=== PATIENT | female | born 1930 | race African-American/Black ===

== ENCOUNTER 2016-06-03 15:36 | Emergency (ER) | payer MEDICARE, BC ==
[~2016-06-03] VITALS: Ht 167.6 cm; Wt 75.0 kg
[~2016-06-03 15:36] MED LIST: ASPI-1035 PO; ESOM40CA PO; ZOLP5TAB2 PO
[2016-06-03] MEDS ORDERED: DIAZEPAM 5 MG TABLET PO ONE (16:15)
[2016-06-03] MEDS ORDERED: TRAMADOL 50MG TABLET PO ONE (18:15)
[2016-06-03 18:16] VITALS: BP 125/78
== END 2016-06-03 19:48 | disposition home or self-care (01) ==
LOC: ER 19:48
DX: M54.42 Lumbago with sciatica, left side (principal); I10 Essential (primary) hypertension; Z79.82 Long term (current) use of aspirin; Z79.899 Other long term (current) drug therapy; Z88.8 Allergy status to other drugs, medicaments and biological substances; M19.90 Unspecified osteoarthritis, unspecified site; M79.7 Fibromyalgia
CPT/HCPCS: 72131; 99284

== ENCOUNTER 2017-03-06 06:08 | Day surgery (SDC) | payer MEDICARE, BC ==
[~2017-03-06 06:08] MED LIST changes: -ASPI-1035 PO; +ASPI-1159 PO
[2017-03-06] MEDS ORDERED: GENTAMICIN/NS IRRIGATION 500 ML IR ONE (07:47)
[2017-03-06] MEDS ORDERED: LIDOCAINE HCL 1% 20ML VIAL (Pyxis) INJ ONE (07:47)
[2017-03-06] MEDS ORDERED: GENTAMICIN SULF 40MG/ML 2ML VIAL ONE (07:47)
[2017-03-06 07:51] LABS: BASOPHILS % 1.1 % (0.0-2.0); EOSINOPHILS % 2.8 % (0.0-5.0); HEMATOCRIT. 43.7 % (36.0-48.0); HEMOGLOBIN. 14.7 g/dL (12.0-16.0); MEAN CORPUSCULAR HEMOGLOBIN 31.4 pg (28.0-32.0); MEAN CORPUSCULAR VOLUME 93.1 fL (81.0-99.0); MEAN PLATELET VOLUME 9.3 fl (7.4-10.4); NEUTROPHILS % 39.1 % (40.0-76.0); PLATELET 234 x1000/uL (130-400); RED BLOOD CELL COUNT 4.69 mill/uL (4.2-5.4); RED CELL DISTRIBUTION WIDTH 14.5 % (11.6-14.6)
[2017-03-06 07:57] LABS: CHLORIDE 110 mEq/L (98-107)
[2017-03-06 07:59] LABS: INR 1.1; PARTIAL THROMBOPLASTIN TIME 25.2 sec (23.4-31.0); PROTHROMBIN TIME 11.9 sec (9.4-11.6)
[2017-03-06 08:03] LABS: CARBON DIOXIDE 28 mEq/L (21-32)
[2017-03-06] MEDS ORDERED: FENTANYL CITRATE/PF 50MCG/ML 2ML VIAL ONE ×2 (09:02→09:26)
[2017-03-06] MEDS ORDERED: MIDAZOLAM HCL 2 MG/2 ML VIAL ONE ×2 (09:02→09:24)
[2017-03-06] MEDS ORDERED: CEFAZOLIN SODIUM 1000MG/VIAL ONE (09:12)
[2017-03-06] MEDS ORDERED: ONDANSETRON HCL 4MG/2ML VIAL IV PRN (09:15)
[2017-03-06] MEDS ORDERED: HYDROMORPHONE HCL/PF 2MG/ML CPJ IV PRN (09:15)
[2017-03-06] MEDS ORDERED: LABETALOL 5MG/ML SYR 20 MG/4 ML SYRINGE IV PRN (09:15)
[2017-03-06] MEDS ORDERED: MEPERIDINE HCL/PF 25MG/ML CPJ IV PRN (09:15)
[2017-03-06] MEDS ORDERED: HYDROCODONE/ACETAMINOPHEN 5/325MG TABLET PO PRN (10:15)
== END 2017-03-06 13:30 | disposition home or self-care (01) ==
LOC: CCL 06:08
PROVIDERS: ATTEND Internal Medicine Clinical Cardiac Electrophysiology
DX: I49.5 Sick sinus syndrome (principal); I44.2 Atrioventricular block, complete; E78.5 Hyperlipidemia, unspecified; J44.1 Chronic obstructive pulmonary disease with (acute) exacerbation; J45.998 Other asthma; K27.9 Peptic ulcer, site unspecified, unspecified as acute or chronic, without hemorrhage or perforation; Z95.0 Presence of cardiac pacemaker; Z88.5 Allergy status to narcotic agent; Z88.8 Allergy status to other drugs, medicaments and biological substances; Z98.890 Other specified postprocedural states; Z79.82 Long term (current) use of aspirin; Z90.49 Acquired absence of other specified parts of digestive tract; E66.3 Overweight
CPT/HCPCS: 33228; 36415; 80048; 85025; 85610; 85730; 93005; C1785; J0690; J1580; J2250; J3010; J3490; J7030; J7050

== ENCOUNTER → 2017-10-30 | Outpatient (CLI) | payer MEDICARE, BC | END | disposition home or self-care (01) | LOC: PF 12:06 | PROVIDERS: ATTEND Specialist | DX: R06.02 Shortness of breath (principal) | CPT/HCPCS: 94060; 94727; 94729 ==

== ENCOUNTER 2019-07-01 20:21 | Emergency (ER) | payer BC, MEDICARE ==
[~2019-07-01] VITALS: Ht 167.6 cm; Wt 70.0 kg
[~2019-07-01 20:21] MED LIST changes: -ASPI-1159 PO; +ASPI-1497 PO
[2019-07-01 21:20] LABS: BASOPHILS % 0.7 % (0.0-2.0); EOSINOPHILS % 0.7 % (0.0-5.0); HEMATOCRIT. 43.9 % (36.0-48.0); HEMOGLOBIN. 14.9 g/dL (12.0-16.0); LYMPHOCYTES % 10.2 % (20.0-50.0); MEAN CORPUSCULAR HEMOGLOBIN 31.6 pg (28.0-32.0); MEAN PLATELET VOLUME 8.4 fl (7.4-10.4); MONOCYTES % 6.1 % (2.0-8.0); NEUTROPHILS % 82.3 % (40.0-76.0); PLATELET 218 x1000/uL (130-400); RED BLOOD CELL COUNT 4.72 mill/uL (4.2-5.4)
[2019-07-01 21:21] LABS: CHLORIDE 107 mEq/L (98-107)
[2019-07-01] MEDS ORDERED: HYDROCODONE/ACETAMINOPHEN 5/325MG TABLET PO STA (21:59)
[2019-07-01] MEDS ORDERED: ASPIRIN 81MG TABLET PO ONE (22:00)
[2019-07-01] MEDS ORDERED: VISCOUS LIDOCAINE 2% 15 ML UDC PO ONE (22:00)
[2019-07-01] MEDS ORDERED: MAGNESIUM/ALUMINUM HYDROXIDE/SIMETHICONE 30ML UDC PO ONE (22:00)
[2019-07-02 00:01] VITALS: BP 129/67
== END 2019-07-02 00:29 | disposition left against medical advice (07) ==
LOC: ER 20:21
DX: R07.89 Other chest pain (principal); M54.2 Cervicalgia
CPT/HCPCS: 36415; 71045; 80053; 83880; 84484; 85025; 93005; 99285

== ENCOUNTER 2019-07-02 12:30 | Inpatient (IN) | payer BC, MEDICARE ==
[~2019-07-02] VITALS: Ht 162.6 cm; Wt 69.9 kg
[2019-07-02 13:55] LABS: BASOPHILS % 0.9 % (0.0-2.0); EOSINOPHILS % 0.6 % (0.0-5.0); HEMATOCRIT. 44.5 % (36.0-48.0); HEMOGLOBIN. 15.3 g/dL (12.0-16.0); MEAN CORPUSCULAR HEMOGLOBIN 32.1 pg (28.0-32.0); MEAN CORPUSCULAR VOLUME 93.6 fL (81.0-99.0); MEAN PLATELET VOLUME 9.1 fl (7.4-10.4); MONOCYTES % 10.1 % (2.0-8.0); NEUTROPHILS % 71.4 % (40.0-76.0); PLATELET 222 x1000/uL (130-400); RED BLOOD CELL COUNT 4.75 mill/uL (4.2-5.4); RED CELL DISTRIBUTION WIDTH 14.3 % (11.6-14.6)
[2019-07-02 14:00] LABS: CHLORIDE 104 mEq/L (98-107)
[2019-07-02 14:13] LABS: CLARITY URINE CLEAR (CLEAR); COLOR URINE YELLOW (YELLOW); KETONES URINE NEGATIVE (NEGATIVE); LEUKOCYTE ESTERASE URINE 2+ (NEGATIVE); NITRITE URINE NEGATIVE (NEGATIVE); OCCULT BLOOD URINE NEGATIVE (NEGATIVE); PH URINE 6.5 (4.5-8.0); PROTEIN URINE NEGATIVE (NEGATIVE); SPECIFIC GRAVITY URINE 1.015 (1.005-1.030); UROBILINOGEN URINE 0.2 E.U./dL (0.2-1.0)
[2019-07-02] MEDS ORDERED: ASPIRIN 325MG EC TABLET PO ONE (14:30)
[2019-07-02] MEDS ORDERED: ONDANSETRON HCL 4MG/2ML INJ IV STA (14:34)
[2019-07-02] MEDS ORDERED: MORPHINE SULFATE 4 MG/ML CPJ (NOT FOR IM USE) IV STA (14:34)
[2019-07-02] MEDS ORDERED: DIGOXIN 125MCG TABLET PO SCH (18:00)
[2019-07-02] MEDS ORDERED: ONDANSETRON HCL 4MG/2ML INJ IV PRN (18:45)
[2019-07-02] MEDS ORDERED: ACETAMINOPHEN 325MG TABLET PO PRN (18:45)
[2019-07-02] MEDS ORDERED: GUAIFENESIN 200MG/10ML SUGAR FREE UDC PO PRN (18:45)
[2019-07-02] MEDS ORDERED: CLONIDINE 0.1MG TABLET PO PRN (18:45)
[2019-07-02] MEDS ORDERED: MORPHINE SULFATE 2 MG/ML CPJ (NOT FOR IM USE) IV PRN (18:45)
[2019-07-02] MEDS ORDERED: DOCUSATE SODIUM 100MG CAPSULE PO PRN (18:45)
[2019-07-02] MEDS ORDERED: LORAZEPAM 2MG/ML CPJ IV PRN (18:45)
[2019-07-02] MEDS ORDERED: MAGNESIUM/ALUMINUM HYDROXIDE/SIMETHICONE 30ML UDC PO PRN (18:45)
[2019-07-02] MEDS: PANTOPRAZOLE SODIUM 40 MG/VIAL IV SCH (20:44)
[2019-07-02] MEDS: ZOLPIDEM TARTRATE 5MG TABLET PO PRN (23:52)
[2019-07-03 05:55] LABS: BASOPHILS % 0.9 % (0.0-2.0); EOSINOPHILS % 2.7 % (0.0-5.0); HEMATOCRIT. 41.9 % (36.0-48.0); HEMOGLOBIN. 14.2 g/dL (12.0-16.0); LYMPHOCYTES % 19.7 % (20.0-50.0); MEAN CORPUSCULAR HEMOGLOBIN 31.8 pg (28.0-32.0); MEAN CORPUSCULAR VOLUME 93.6 fL (81.0-99.0); MEAN PLATELET VOLUME 8.4 fl (7.4-10.4); MONOCYTES % 11.6 % (2.0-8.0); NEUTROPHILS % 65.1 % (40.0-76.0); PLATELET 185 x1000/uL (130-400); RED BLOOD CELL COUNT 4.47 mill/uL (4.2-5.4); RED CELL DISTRIBUTION WIDTH 14.4 % (11.6-14.6)
[2019-07-03 06:01] LABS: CHLORIDE 108 mEq/L (98-107)
[2019-07-03] MEDS: ASPIRIN 81MG EC TABLET PO SCH (09:00)
[2019-07-03] MEDS: PANTOPRAZOLE SODIUM 40 MG/VIAL IV SCH (09:00)
[2019-07-03] MEDS ORDERED: ASPIRIN 81MG TABLET PO SCH (09:00)
[2019-07-03 11:23] VITALS: BP 142/53
[2019-07-03] MEDS ORDERED: DIGOXIN 125MCG TABLET PO SCH (19:00)
[2019-07-03] MEDS ORDERED: GUAIFENESIN-DM 200MG-20MG/10ML UDC PO PRN (20:15)
[2019-07-03] MEDS ORDERED: ALBUTEROL 6.7GM HFA INHALER ORI PRN (20:45)
[2019-07-03] MEDS ORDERED: AZITHROMYCIN 500 MG TABLET PO SCH (21:00)
[2019-07-03] MEDS ORDERED: CEFTRIAXONE 1 G PREMIX 50 ML IV SCH (21:30)
[2019-07-03] MEDS ORDERED: CEFTRIAXONE SODIUM 1 G/VIAL IM SCH (22:00)
[2019-07-03] MEDS ORDERED: FLUTICASONE/VILANTEROL 200-25 BLST.W.DEV ORI SCH (22:00)
[2019-07-03 23:23] VITALS: BP_SYST 135; BP_SYST 142; BP_DIAS 53
[2019-07-03] MEDS ORDERED: IOHEXOL-350 100 ML BOTTLE ONE (23:30)
[2019-07-04] MEDS: ZOLPIDEM TARTRATE 5MG TABLET PO PRN (00:47)
[2019-07-04] MEDS ORDERED: TOPUD PO (03:13)
[2019-07-04] MEDS ORDERED: GABA-529 MT (03:13)
[2019-07-04] MEDS ORDERED: GLUC-113 MT (03:13)
[2019-07-04] MEDS ORDERED: LACT1CAP68 MT (03:13)
[2019-07-04] MEDS ORDERED: VALE150C PO (03:13)
[2019-07-04] MEDS ORDERED: DIGO125T80 MT (03:13)
[2019-07-04] MEDS ORDERED: CHOL40002 MT (03:13)
[2019-07-04] MEDS ORDERED: ASCO125T PO (03:13)
[2019-07-04 04:00] VITALS: BP 129/87
[2019-07-04 08:00] VITALS: BP 119/54
[2019-07-04] MEDS: PANTOPRAZOLE SODIUM 40 MG/VIAL IV SCH (08:24)
[2019-07-04] MEDS: ASPIRIN 81MG EC TABLET PO SCH (08:24)
[2019-07-04 14:00] VITALS: BP 108/49
[2019-07-04 16:04] VITALS: BP 108/48
[2019-07-04] MEDS ORDERED: DIGOXIN 125MCG TABLET PO SCH (18:00)
[2019-07-05] MEDS ORDERED: FAMOTIDINE 20MG TABLET PO SCH (09:00)
== END 2019-07-04 17:20 | disposition home or self-care (01) | DRG 313 ==
LOC: ER 12:35 → CANRESERV 21:43 → ENRESERV 21:43 → EDBEDREQ 07-03 01:13 → 7EST 07-03 16:55 → ENRESERV 07-03 21:24 → EDBEDREQ 07-03 22:02 → 7EST 07-03 23:48
PROVIDERS: ADMIT Hospitalist; ATTEND Hospitalist
DX: R07.89 Other chest pain (principal); J90 Pleural effusion, not elsewhere classified; J98.11 Atelectasis; E44.1 Mild protein-calorie malnutrition; I25.10 Atherosclerotic heart disease of native coronary artery without angina pectoris; I49.5 Sick sinus syndrome; K21.9 Gastro-esophageal reflux disease without esophagitis; M79.7 Fibromyalgia; I95.1 Orthostatic hypotension; E78.5 Hyperlipidemia, unspecified; J45.909 Unspecified asthma, uncomplicated; M19.90 Unspecified osteoarthritis, unspecified site; Z88.5 Allergy status to narcotic agent; Z95.0 Presence of cardiac pacemaker; Z88.8 Allergy status to other drugs, medicaments and biological substances; Z79.82 Long term (current) use of aspirin; Z79.899 Other long term (current) drug therapy; Z68.26 Body mass index [BMI] 26.0-26.9, adult; Z90.49 Acquired absence of other specified parts of digestive tract; Z90.89 Acquired absence of other organs; Z82.49 Family history of ischemic heart disease and other diseases of the circulatory system; Z83.6 Family history of other diseases of the respiratory system; Z03.818 Encounter for observation for suspected exposure to other biological agents ruled out
CPT/HCPCS: 36415; 71045; 71275; 80053; 80162; 81003; 83880; 84484; 85025; 87635; 93005; 93970; 96374; 96375; 99285; C9113; J0696; J2270; J2405; Q9967; U0003-CS

== ENCOUNTER → 2020-10-15 | Outpatient (CLI) | payer BC ==
[~2020-10-15] MED LIST changes: +ALBUTEROL (0.083%) 2.5MG/3ML NEB ONE; +ASCO125T PO; +CHOL40002 MT; +DIGO125T80 MT; +GABA-529 MT; +GLUC-113 MT; +LACT1CAP68 MT; +TOPUD PO; +VALE150C PO
== END | disposition home or self-care (01) ==
LOC: PF 12:46
PROVIDERS: ATTEND Internal Medicine Pulmonary Disease
DX: J98.4 Other disorders of lung (principal); J45.909 Unspecified asthma, uncomplicated; R06.00 Dyspnea, unspecified; Z20.822 Contact with and (suspected) exposure to COVID-19
CPT/HCPCS: 87426; 94060; 94727; 94729

== ENCOUNTER 2022-02-27 11:37 | Inpatient (IN) | payer BC ==
[~2022-02-27] VITALS: Ht 166.4 cm; Wt 67.8 kg
[~2022-02-27 11:37] MED LIST changes: -ALBUTEROL (0.083%) 2.5MG/3ML NEB ONE
[2022-02-27 12:57] LABS: HEMATOCRIT. 41.1 % (36.0-48.0); HEMOGLOBIN. 14.3 g/dL (12.0-16.0); MEAN CORPUSCULAR HEMOGLOBIN 33.3 pg (28.0-32.0); MEAN PLATELET VOLUME 8.7 fl (7.4-10.4); PLATELET 193 x1000/uL (130-400); RED BLOOD CELL COUNT 4.28 mill/uL (4.2-5.4); RED CELL DISTRIBUTION WIDTH 14.9 % (11.6-14.6)
[2022-02-27 13:00] LABS: CHLORIDE 113 mEq/L (98-107)
[2022-02-27 13:03] LABS: PROTHROMBIN TIME 10.9 sec (9.6-11.0)
[2022-02-27] MEDS ORDERED: ACETAMINOPHEN 325MG TABLET PO ONE (13:30)
[2022-02-27 13:55] LABS: PLATELET ESTIMATE NORMAL
[2022-02-27] MEDS ORDERED: IOHEXOL-350 100 ML BOTTLE ONE (15:02)
[2022-02-27] MEDS ORDERED: ASPIRIN 325MG TABLET PO ONE (16:45)
[2022-02-27] MEDS ORDERED: ZOLPIDEM TARTRATE 5MG TABLET PO PRN (19:00)
[2022-02-27] MEDS ORDERED: MAGNESIUM/ALUMINUM HYDROXIDE/SIMETHICONE 30ML UDC PO PRN (19:00)
[2022-02-27] MEDS ORDERED: ONDANSETRON HCL 4MG/2ML INJ IV PRN (19:00)
[2022-02-27] MEDS ORDERED: DIPHENHYDRAMINE 50MG/ML VIAL IV PRN (19:00)
[2022-02-27] MEDS ORDERED: PROMETHAZINE/DEXTROMETHORPHAN 6.25-15MG/5ML BOTTLE 120ML PO PRN (19:00)
[2022-02-27] MEDS ORDERED: CLONIDINE 0.1MG TABLET PO PRN (19:00)
[2022-02-27] MEDS ORDERED: BUDESONIDE 0.5MG/2ML NEB HHN SCH (19:00)
[2022-02-27] MEDS ORDERED: ACETAMINOPHEN 325MG TABLET PO PRN ×2 (19:00)
[2022-02-27] MEDS ORDERED: KETOROLAC 30MG/ML VIAL IV PRN (19:30)
[2022-02-27 20:45] VITALS: BP 156/75
[2022-02-27] MEDS: PANTOPRAZOLE 40MG DR TABLET PO SCH (21:36)
[2022-02-27] MEDS: GABAPENTIN 100MG CAPSULE PO SCH (21:36)
[2022-02-27] MEDS: GUAIFENESIN 600MG ER TABLET PO SCH (21:36)
[2022-02-27] MEDS: SODIUM CHLORIDE 0.9% INJ 3ML FLUSH IVF SCH (21:37)
[2022-02-27 21:45] VITALS: BP 156/75
[2022-02-28] VITALS: BP 152/81
[2022-02-28 04:00] VITALS: BP 117/64
[2022-02-28] MEDS: SODIUM CHLORIDE 0.9% INJ 3ML FLUSH IVF SCH ×2 (06:13→13:15)
[2022-02-28] MEDS: PANTOPRAZOLE 40MG DR TABLET PO SCH (06:13)
[2022-02-28] MEDS: GABAPENTIN 100MG CAPSULE PO SCH ×2 (06:13→13:15)
[2022-02-28 08:01] VITALS: BP 115/53
[2022-02-28] MEDS: GUAIFENESIN 600MG ER TABLET PO SCH (08:19)
[2022-02-28] MEDS ORDERED: ASCORBIC ACID 250 MG TABLET PO SCH (09:00)
[2022-02-28] MEDS ORDERED: ASPIRIN 81MG EC TABLET PO SCH (09:00)
[2022-02-28] MEDS ORDERED: CHOLECALCIFEROL (D3) 1000 UNIT TABLET PO SCH (09:00)
[2022-02-28 12:00] VITALS: BP 138/59
[2022-02-28 12:58] VITALS: BP 137/59
[2022-02-28] MEDS ORDERED: DIGOXIN 125MCG TABLET PO SCH (18:00)
[2022-03-01] MEDS ORDERED: FAMOTIDINE 20MG TABLET PO SCH (09:00)
== END 2022-02-28 14:45 | disposition home or self-care (01) | DRG 206 ==
LOC: EDBD 11:37 → ER 11:37 → 8WST 17:14 → EDBEDREQTM 17:17 → EDBEDREQ 17:17 → ENRESERV 19:33 → 8WST 21:11
PROVIDERS: ADMIT Internal Medicine; ATTEND Internal Medicine
DX: M94.0 Chondrocostal junction syndrome [Tietze] (principal); J44.9 Chronic obstructive pulmonary disease, unspecified; I49.5 Sick sinus syndrome; Z20.822 Contact with and (suspected) exposure to COVID-19; M41.9 Scoliosis, unspecified; Z88.8 Allergy status to other drugs, medicaments and biological substances; Z79.899 Other long term (current) drug therapy; Z95.0 Presence of cardiac pacemaker
CPT/HCPCS: 36415; 71045; 71275; 80053; 84484; 85025; 87426; 93005; 99285; Q9967